=== PATIENT | female | born 1985 | race African-American/Black ===

== ENCOUNTER 2018-04-24 17:11 | Emergency (ER) | payer OTHER ==
[~2018-04-24] VITALS: Ht 165.1 cm; Wt 86.2 kg
--- NOTE | 2018-04-24 17:12 | NUR ---
Patient to ER bed 07 for evaluation. Side rails up. Report given to JAKUB ESPINOZA.
[2018-04-24 17:15] VITALS: BP_SYST 144
--- NOTE | 2018-04-24 17:15 | NUR ---
Patient arrived via POV, ambulatory with steady gait, and AAOx4, patient c/c of anxiety today. She states an episode of nausea, light-headedness, and shakiness. She states that she has had a lot of stress at work due to her boss. She states that her boss at work is aggressive, which causes a lot of stress. She denies taking any medications for her symptoms. She denies any vomiting, diarrhea, fevers, chills, chest pain, shortness of breath, or abdominal pain.
--- NOTE | 2018-04-24 17:20 | NUR ---
ER at bedside examining patient.
--- NOTE | 2018-04-24 18:00 | NUR ---
Patient given written and verbal discharge instructions and verbalizes understanding. ER MD discussed with patient the results and treatment provided. Patient in stable condition. ID arm band removed. Rx of Xanax given. Patient educated on pain management and to follow up with PMD. Pain Scale 3/10. Opportunity for questions provided and answered. Medication side effect fact sheet provided.
[2018-04-24 18:04] VITALS: BP_SYST 138
== END 2018-04-24 18:04 | disposition home or self-care (01) ==
LOC: SED 17:11
DX: F41.9 Anxiety disorder, unspecified (principal); E11.9 Type 2 diabetes mellitus without complications; R03.0 Elevated blood-pressure reading, without diagnosis of hypertension
CPT/HCPCS: 82962; 99283

== ENCOUNTER 2019-04-15 13:48 | Emergency (ER) | payer OTHER ==
[~2019-04-15] VITALS: Ht 167.6 cm; Wt 93.0 kg
[2019-04-15 13:50] VITALS: BP_SYST 136
[2019-04-15 16:03] LABS: BILIRUBIN,URINE NEGATIVE (NEGATIVE); BLOOD, URINE 3+ (NEGATIVE); COLOR,URINE YELLOW (YELLOW); GLUCOSE,URINE 3+ (NEGATIVE); KETONES,URINE 1+ (NEGATIVE); LEUKOCYTE ESTERASE ,URINE NEGATIVE (NEGATIVE); NITRITE, URINE NEGATIVE (NEGATIVE); PH,URINE 5.5 (5.0-8.0); PROTEIN URINE TRACE (NEGATIVE); UROBILINOGEN,URINE 0.2 (0.2-1.0)
[2019-04-15 16:04] LABS: CLARITY/URINE SLIGHTLY HAZY (CLEAR)
[2019-04-15 16:11] LABS: BACTERIA,URINE FEW /HPF (None Seen); MUCUS,URINE 2+ /LPF (None Seen); YEAST,URINE Few /HPF (None Seen)
[2019-04-15 16:12] LABS: FINE GRANULAR CASTS,URINE 0-10 /LPF (None Seen); OTHER CASTS, URINE WBC CASTS 1+ /LPF (None Seen)
--- NOTE | 2019-04-15 16:22 | NUR ---
Patient to ER bed ch1 for evaluation. Side rails up.
--- NOTE | 2019-04-15 16:23 | NUR ---
Pt AAOx4 ambulated into ED c/o 07/22 pain to R flank radiating to RLQ abdomen x 2 weeks. Denies dysuria/n/v/d. Skin pink dry and warm, breathing even and unlabored. No other injuries/complaints per pt/noted. Will continue to monitor.
--- NOTE | 2019-04-15 16:26 | NUR ---
ER Dr. Silveira at bedside examining patient.
--- NOTE | 2019-04-15 16:28 | NUR ---
Patient given written and verbal discharge instructions and verbalizes understanding. ER MD Silveira discussed with patient the results and treatment provided. Patient in stable condition. ID arm band removed. Rx of Macrobid, Pyridium given. Patient educated on pain management and to follow up with PMD. Pain Scale 2. Opportunity for questions provided and answered. Medication side effect fact sheet provided.
[2019-04-15 16:29] VITALS: BP_SYST 127
== END 2019-04-15 16:28 | disposition home or self-care (01) ==
LOC: SED 13:48
DX: N39.0 Urinary tract infection, site not specified (principal); E11.9 Type 2 diabetes mellitus without complications; F41.9 Anxiety disorder, unspecified
CPT/HCPCS: 81000-TC; 87086; 99283

== ENCOUNTER 2019-08-31 14:57 | Emergency (ER) | payer OTHER ==
[~2019-08-31] VITALS: Ht 167.6 cm; Wt 90.7 kg
[2019-08-31 15:15] VITALS: BP_SYST 133
--- NOTE | 2019-08-31 15:49 | NUR ---
Patient to ER bed H1 to gown for evaluation. Side rails up.
--- NOTE | 2019-08-31 15:50 | NUR ---
Pt. presents to the ED ambulatory, A&O x4 with c/o bilateral flank pain that has intensified over the past two days and radiates to both hips and hurts more so when she sits. Pt. states that she has been nauseous but denies vomiting, chills, fever, and other symptoms. Cap refill <3 seconds, skin is warm, dry, and intact.
--- NOTE | 2019-08-31 15:50 | NUR ---
Dr. Silveira at bedside examining pt.
[2019-08-31 15:55] VITALS: BP_SYST 134
--- NOTE | 2019-08-31 15:55 | NUR ---
Patient given written and verbal discharge instructions and verbalizes understanding. ER MD discussed with patient the results and treatment provided. Patient in stable condition. ID arm band removed. Rx of Macrobid and Tramadol given. Patient educated on pain management and to follow up with PMD. Pain Scale 4/10. Opportunity for questions provided and answered. Medication side effect fact sheet provided.
== END 2019-08-31 15:55 | disposition home or self-care (01) ==
LOC: SED 14:57
DX: M54.6 Pain in thoracic spine (principal); N39.0 Urinary tract infection, site not specified; F41.9 Anxiety disorder, unspecified; E11.9 Type 2 diabetes mellitus without complications; Z88.6 Allergy status to analgesic agent; Z88.5 Allergy status to narcotic agent
CPT/HCPCS: 99283

== ENCOUNTER 2019-09-10 09:17 | Inpatient (IN) | payer OTHER ==
[~2019-09-10] VITALS: Ht 167.6 cm; Wt 95.3 kg
[2019-09-10 09:17] VITALS: BP_SYST 162
[2019-09-10] MEDS ORDERED: NACL 0.9% 1,000 ML IV ONE ×2 (09:20→10:15)
[2019-09-10] MEDS ORDERED: ONDANSETRON HCL 4 MG/2 ML VIAL IVP ONE ×2 (09:30→10:30)
[2019-09-10] MEDS ORDERED: MORPHINE 4 MG/ML INJ. SYRINGE IVP ONE ×2 (09:30→10:15)
[2019-09-10] MEDS ORDERED: KETOROLAC TROMETHAMINE 30 MG VIAL IVP ONE (09:30)
[2019-09-10 09:49] LABS: BASOPHILS % (AUTO) 0.4 % (0.0-2.0); EOSINOPHILS # (AUTO) 0.2 K/uL (0.0-0.4); EOSINOPHILS % (AUTO) 1.9 % (0.0-4.0); HEMATOCRIT 33.1 % (36-48); HEMOGLOBIN 10.4 g/dL (12.0-16.0); LYMPHOCYTES % (AUTO) 41.5 % (20.5-51.5); MEAN CORPUSCULAR HEMOGLOBIN 25 pg (27-31); MEAN CORPUSCULAR HGB CONC 32 % (32-36); MEAN CORPUSCULAR VOLUME 78 fL (79.0-98.0); MONOCYTES # (AUTO) 0.6 K/uL (0.0-1.0); MONOCYTES % (AUTO) 6.7 % (1.7-9.3); NEUTROPHILS # (AUTO) 4.8 K/uL (1.8-7.7); NEUTROPHILS % (AUTO) 49.5 % (40.0-70.0); PLATELET COUNT (AUTO) 268 K/uL (130-430); RED BLOOD CELL COUNT(AUTO) 4.26 MIL/uL (4.2-6.2); RED CELL DISTRIBUTION WIDTH 17.2 % (9.0-15.0); WHITE BLOOD COUNT (AUTO) 9.6 K/uL (4.8-10.8)
[2019-09-10 09:59] LABS: CALCIUM 8.5 mg/dL (8.4-11.0); CREATININE 1.24 mg/dL (0.55-1.30); POTASSIUM 3.7 mmol/L (3.5-5.1)
[2019-09-10 10:05] LABS: ALBUMIN 3.3 g/dL (3.4-4.8); TOTAL BILIRUBIN 0.3 mg/dL (0.0-1.0)
[2019-09-10 10:29] LABS: BILIRUBIN,URINE 2+ (NEGATIVE); BLOOD, URINE 3+ (NEGATIVE); CLARITY/URINE TURBID (CLEAR); COLOR,URINE YELLOW (YELLOW); GLUCOSE,URINE 2+ (NEGATIVE); KETONES,URINE TRACE (NEGATIVE); LEUKOCYTE ESTERASE ,URINE 2+ (NEGATIVE); NITRITE, URINE POSITIVE (NEGATIVE); PH,URINE 6.5 (5.0-8.0); PROTEIN URINE 3+ (NEGATIVE)
[2019-09-10 10:48] LABS: RBC,URINE >100 /HPF (0-3)
[2019-09-10 10:49] LABS: BACTERIA,URINE MODERATE /HPF (None Seen); WBC,URINE 20-50 /HPF (0-3)
[2019-09-10] MEDS ORDERED: cefTRIAXone 1 GM in D5W 50 ML IV ONE (11:30)
[2019-09-10] MEDS ORDERED: cefTRIAXone 1 GM VIAL ONE (11:46)
[2019-09-10] MEDS ORDERED: BACL10TA PO (13:32)
[2019-09-10] MEDS ORDERED: GLU500 PO (13:32)
[2019-09-10] MEDS ORDERED: VALA500T33 PO (13:32)
[2019-09-10 14:30] VITALS: BP_SYST 133
[2019-09-10] MEDS: NACL 0.9% 1,000 ML IV SCH (14:40)
[2019-09-10 15:00] VITALS: BP_SYST 133
[2019-09-10] MEDS ORDERED: MORPHINE 2 MG/ML INJ. SYRINGE IVP PRN (15:15)
[2019-09-10] MEDS ORDERED: MORPHINE 4 MG/ML INJ. SYRINGE IVP PRN (15:15)
[2019-09-10] MEDS ORDERED: LEVOFLOXACIN 500 MG/D5W 100 ML IV ONE (16:15)
[2019-09-10] MEDS ORDERED: TEMAZEPAM 15 MG CAPSULE PO PRN (16:30)
[2019-09-10] MEDS ORDERED: DEXTROSE 50% JECT 50 ML DISP.SYRIN IVP PRN (16:30)
[2019-09-10] MEDS ORDERED: FAMOTIDINE 20 MG TABLET PO ONE (16:30)
[2019-09-10] MEDS ORDERED: IBUPROFEN 400 MG TABLET PO PRN (16:30)
[2019-09-10] MEDS: INSULIN REGULAR, HUMAN 100 UNITS/ML, 10 ML VIAL (humuLIN R) SUBCUT PRN ×2 (17:06→21:56)
[2019-09-10] MEDS: metFORMIN HCL 500 MG TABLET PO SCH (17:56)
[2019-09-10 20:05] VITALS: BP_SYST 118
[2019-09-10] MEDS ORDERED: TAMSULOSIN HCL 0.4 MG CAP PO SCH (21:00)
[2019-09-10] MEDS: FAMOTIDINE 20 MG TABLET PO SCH (21:54)
[2019-09-11 05:07] VITALS: BP_SYST 124
[2019-09-11] MEDS: NACL 0.9% 1,000 ML IV SCH ×3 (06:01→17:40)
[2019-09-11] MEDS: INSULIN REGULAR, HUMAN 100 UNITS/ML, 10 ML VIAL (humuLIN R) SUBCUT PRN ×3 (06:01→20:29)
[2019-09-11 07:45] LABS: BASOPHILS % (AUTO) 0.6 % (0.0-2.0); EOSINOPHILS # (AUTO) 0.1 K/uL (0.0-0.4); EOSINOPHILS % (AUTO) 1.4 % (0.0-4.0); HEMATOCRIT 31.9 % (36-48); HEMOGLOBIN 9.8 g/dL (12.0-16.0); LYMPHOCYTES % (AUTO) 24.2 % (20.5-51.5); MEAN CORPUSCULAR HEMOGLOBIN 24 pg (27-31); MEAN CORPUSCULAR HGB CONC 31 % (32-36); MEAN CORPUSCULAR VOLUME 79 fL (79.0-98.0); MONOCYTES # (AUTO) 0.5 K/uL (0.0-1.0); MONOCYTES % (AUTO) 5.7 % (1.7-9.3); NEUTROPHILS # (AUTO) 5.7 K/uL (1.8-7.7); NEUTROPHILS % (AUTO) 68.1 % (40.0-70.0); PLATELET COUNT (AUTO) 228 K/uL (130-430); RED BLOOD CELL COUNT(AUTO) 4.06 MIL/uL (4.2-6.2); RED CELL DISTRIBUTION WIDTH 17.1 % (9.0-15.0); WHITE BLOOD COUNT (AUTO) 8.4 K/uL (4.8-10.8)
[2019-09-11 08:00] VITALS: BP_SYST 121
[2019-09-11 08:07] LABS: ALBUMIN 2.7 g/dL (3.4-4.8); CALCIUM 7.1 mg/dL (8.4-11.0); CREATININE 1.39 mg/dL (0.55-1.30); PHOSPHORUS 3.4 mg/dL (2.7-4.5); POTASSIUM 3.8 mmol/L (3.5-5.1); THYROID STIMULATING HORMONE 0.6 uIu/mL (0.36-3.74); TOTAL BILIRUBIN 0.3 mg/dL (0.0-1.0)
[2019-09-11] MEDS ORDERED: BACLOFEN 10 MG TABLET PO SCH (09:00)
[2019-09-11] MEDS ORDERED: cefTRIAXone 1 GM IVPB PREMIX 50 ML IV SCH (09:00)
[2019-09-11] MEDS: FAMOTIDINE 20 MG TABLET PO SCH ×2 (09:08→20:24)
[2019-09-11] MEDS: metFORMIN HCL 500 MG TABLET PO SCH ×2 (09:08→17:39)
[2019-09-11] MEDS: ONDANSETRON HCL 4 MG/2 ML VIAL IVP PRN ×2 (12:08→17:39)
[2019-09-11 12:58] VITALS: BP_SYST 137
[2019-09-11] MEDS ORDERED: MULTIVITS,CA,MINERALS/IRON/FA 1 TABLET PO ONE (13:30)
[2019-09-11] MEDS ORDERED: LEVOFLOXACIN 500 MG/D5W 100 ML IV SCH (14:00)
[2019-09-11 16:25] VITALS: BP_SYST 125
[2019-09-11 20:00] VITALS: BP_SYST 158
[2019-09-11] MEDS ORDERED: DOCUSATE SODIUM 100 MG CAPSULE PO ONE (20:00)
[2019-09-12] MEDS ORDERED: MULTIVITS,CA,MINERALS/IRON/FA 1 TABLET PO SCH (09:00)
== END 2019-09-12 | disposition left against medical advice (07) | DRG 463 ==
LOC: SED 09:17 → SMU 12:27
PROVIDERS: ADMIT Internal Medicine; ATTEND Internal Medicine
DX: N10 Acute pyelonephritis (principal); E44.1 Mild protein-calorie malnutrition; N28.1 Cyst of kidney, acquired; E11.9 Type 2 diabetes mellitus without complications; N28.81 Hypertrophy of kidney; F41.9 Anxiety disorder, unspecified; E66.9 Obesity, unspecified; N20.0 Calculus of kidney; Z53.29 Procedure and treatment not carried out because of patient's decision for other reasons; N94.89 Other specified conditions associated with female genital organs and menstrual cycle; N26.1 Atrophy of kidney (terminal); Z88.6 Allergy status to analgesic agent; Z68.33 Body mass index [BMI] 33.0-33.9, adult; Z03.818 Encounter for observation for suspected exposure to other biological agents ruled out; E87.1 Hypo-osmolality and hyponatremia
CPT/HCPCS: 36415; 76830-TC; 76857; 80053; 81000-TC; 82962; 83036; 84100-TC; 84439; 84443-TC; 84703; 85025; 86304; 87086; 96365; 96375; 96376; 99285; J0696; J1885; J1956; J2270; J2405; J7030; U0003-CS